=== PATIENT | male | born 1965 | race Caucasian/White ===

== ENCOUNTER 2016-05-07 15:34 | Emergency (ER) | payer OTHER ==
[2016-05-07 15:44] VITALS: BP 145/93; PULSE 107; RESP 20; TEMP 98.5; O2SAT 98
--- NOTE | 2016-05-07 16:18 | ED PDOC ---
HPI: Male Pain Time Seen by Provider: 05/07/16 15:46 Chief Complaint (Nursing): GI Problem Chief Complaint (Provider): genitourinary History Per: Patient History/Exam Limitations: no limitations Onset/Duration Of Symptoms: Days (x 2) Current Symptoms Are (Timing): Still Present Associated Symptoms: Fever, Chills, Urinary Symptoms. denies: Nausea, Vomiting , Back Pain Additional Complaint(s): Sudeep Maria is a 50 year old male, with a previous medical history of hyperactive bladder and an enlarged bladder, who presents to the ED with complaints of urinary symptoms. Pt reports symptoms include frequency, dysuria, pelvic pain, fever, chills and foul odor. Pt states symptoms are consistent with a bladder infection he experienced in the past. Pt denies any scrotal pain , back pain, penile pain, penile discharge or swelling to the tip of the penis. Pt also states to experiencing constipation for "couple of days". Urologist: Dr. costa Past Medical History Reviewed: Historical Data, Nursing Documentation, Vital Signs Vital Signs: Last Vital Signs Temp 98.5 F 05/07/16 15:36 Pulse 107 H 05/07/16 15:36 Resp 20 05/07/16 15:36 BP 145/93 H 05/07/16 15:36 Pulse Ox 98 05/07/16 15:36 - Surgical History Other surgeries: TURP - Family History Family History: States: Unknown Family Hx - Home Medications Home Medications: Ambulatory Orders Medication Instructions Recorded Ciprofloxacin [Cipro] 250 mg PO BID #14 tab 05/07/16 - Allergies Allergies/Adverse Reactions: Allergies Allergy/AdvReac Type Severity Reaction Status Date / Time No Known Allergies Allergy Verified 05/07/16 15:40 Review of Systems ROS Statement: Except As Marked, All Systems Reviewed And Found Negative Constitutional: Positive for: Fever, Chills Gastrointestinal: Positive for: Constipation Genitourinary Male: Positive for: Dysuria, Frequency, Other (foul odor and pelvic pain ). Negative for: Incontinence, Hematuria, Penile Discharge, Scrotal Pain, Rash, Penile Pain Physical Exam - Reviewed Nursing Documentation Reviewed: Yes Vital Signs Reviewed: Yes - Physical Exam Appears: Positive for: Well, Non-toxic, No Acute Distress Head Exam: Positive for: ATRAUMATIC, NORMAL INSPECTION, NORMOCEPHALIC Skin: Positive for: Normal Color, Warm, Dry Male Genital Exam: Positive for: normal genitalia, other (suprapubic tenderness. Chaperoned by Dara BECKETT). Negative for: lesions, scrotum tenderness (R), scrotum tenderness (L), testicular tenderness (R), testicular tenderness (L ) Back: Positive for: Normal Inspection. Negative for: L CVA Tenderness, R CVA Tenderness, Vertebral Tenderness Neurologic/Psych: Positive for: Alert, Oriented - Laboratory Results Result Diagrams: 05/07/16 16:59 05/07/16 16:59 Urine dip results: Negative for: Leukocyte Esterase, Blood, Nitrate, Ketones, Glucose, Bilirubin, Protein - ECG O2 Sat by Pulse Oximetry: 98 (RA) Pulse Ox Interpretation: Normal Medical Decision Making Medical Decision Making: Initial Impression:cystitis Initial Plan: * urine dipstick * urinalysis * chlamydia/GC RNA * x-ray abdomen * reevaluation abdominal x-ray were normal along with urinalysis. Follow up with urologist for PSA testing. Pt will be given prophylactic antibiotic and antifungal. Scribe Attestation: Documented by Sara Yuan, acting as a scribe for Irena Mahmood PA-C. Provider Scribe Attestation: All medical record entries made by the Scribe were at my direction and personally dictated by me. I have reviewed the chart and agree that the record accurately reflects my personal performance of the history, physical exam, medical decision making, and the department course for this patient. I have also personally directed, reviewed, and agree with the discharge instructions and disposition Disposition - Clinical Impression Clinical Impression: Cystitis - Disposition Condition: STABLE Prescriptions: Ciprofloxacin [Cipro] 250 mg PO BID #14 tab Instructions: Sexually Transmitted Diseases (ED), Urinary Tract Infection in Men (ED)
[2016-05-07 16:40] LABS: RBC URINE 1 /hpf (0-3); URINE BILIRUBIN NEGATIVE (NEGATIVE); URINE BLOOD NEGATIVE (NEGATIVE); URINE COLOR YELLOW (YELLOW); URINE GLUCOSE (UA) NEG (Normal); URINE KETONE TRACE mg/dL (NEGATIVE); URINE LEUKOCYTE ESTERASE NEG Leu/uL (Negative); URINE PROTEIN NEGATIVE (NEGATIVE); URINE UROBILINOGEN 0.2-1.0 mg/dL (0.2-1.0); WBC URINE 1 /hpf (0-5)
[2016-05-07 17:10] LABS: BASO % 0.7 % (0.0-2.0); EOS % 0.5 % (0.0-4.0); HEMATOCRIT 45.9 % (35.0-51.0); LYMPH # 0.8 K/uL (1.0-4.3); LYMPH % 16.7 % (20.0-40.0); MEAN CELL VOLUME 83.9 fl (80.0-94.0); MEAN CORPUSCULAR HEMOGLOBIN 27.6 pg (27.0-31.0); MEAN CORPUSCULAR HGB CONC 32.9 g/dL (33.0-37.0); MEAN PLATELET VOLUME 7.6 fl (7.2-11.7); MONO # 0.7 K/uL (0.0-0.8); MONO % 14.6 % (0.0-10.0); NEUT % 67.5 % (50.0-75.0); RED CELL DISTRIBUTION WIDTH 13.1 % (11.5-14.5); WHITE BLOOD COUNT 4.5 K/uL (4.8-10.8)
[2016-05-07 17:22] LABS: ALB/GLOB RATIO 1.4 (1.0-2.1); ALKALINE PHOSPHATASE 70 U/L (38-126); ALT/SGPT 36 U/L (21-72); AST/SGOT 30 U/L (17-59); BILIRUBIN,TOTAL 0.5 mg/dl (0.2-1.3); BLOOD UREA NITROGEN 13 mg/dl (9-20); CALCIUM 9.1 mg/dL (8.4-10.2); CARBON DIOXIDE 24 mmol/L (22-30); CHLORIDE 100 mmol/L (98-107); GFR AFRICAN-AMERICAN > 60; GLUCOSE,RANDOM 94 mg/dL (75-110); POTASSIUM 4.3 MMOL/L (3.6-5.0); SODIUM 138 mmol/l (132-148); TOTAL PROTEIN 7.6 G/DL (6.3-8.2)
--- NOTE | 2016-05-07 17:58 | RAD ---
HISTORY: constipation COMPARISON: No prior. FINDINGS: BOWEL: There are mildly dilated small bowel loops in the left abdomen. There is mild mucosal thickening. Possibility of early mechanical small bowel obstruction should be considered. There is moderate retained fecal matter. There are no masses or abnormal intra-abdominal calcifications. There is no free intraperitoneal air demonstrated. BONES: Normal. OTHER FINDINGS: None. IMPRESSION: Mildly dilated abnormal small bowel loops in the left abdomen. Moderate retained feces. Cannot rule out early mechanical bowel obstruction.
== END 2016-05-07 18:00 | disposition home or self-care (01) ==
LOC: H.ER 15:34
DX: N30.90 Cystitis, unspecified without hematuria (principal)